=== PATIENT | female | born 1950 | race Caucasian/White ===

== ENCOUNTER 2017-03-25 17:32 | Inpatient (IN) | payer MEDICARE, MEDICAID ==
[~2017-03-25] VITALS: Ht 152.4 cm; Wt 63.5 kg
[~2017-03-25 17:32] MED LIST: HYDR-3240 PO; HYDR25TA6 PO; LISI2.5T PO; ROPI1TAB2 PO; TRAM50TA2 PO; ZOLP10TA PO
[2017-03-25] MEDS ORDERED: SODIUM CHLORIDE FLUSH 10ML SYR IVF ONE (18:00)
[2017-03-25] MEDS ORDERED: SODIUM CHLORIDE 0.9% 1,000ML IVBOLUS ONE ×2 (18:00→19:00)
[2017-03-25] MEDS ORDERED: LORazepam 2 MG/ML, 1ML ONE (18:24)
[2017-03-25] MEDS ORDERED: LORazepam 2 MG/ML, 1ML IVPush ONE (18:30)
[2017-03-25 18:36] LABS: ASPARTATE AMINO TRANSFERASE 21 U/L (15-37); BLOOD UREA NITROGEN 22 mg/dL (7-18)
[2017-03-25] MEDS ORDERED: ACETAMINOPHEN 650 MG SUPP ONE (18:46)
[2017-03-25 18:48] LABS: DIFF TOTAL CELLS COUNTED 100 CELL DIFF
[2017-03-25 18:50] LABS: VERIFY COUNTS? YES
[2017-03-25] MEDS ORDERED: ACETAMINOPHEN 650 MG SUPP PR ONE (19:00)
[2017-03-25] MEDS ORDERED: CEFTRIAXONE PMX 1GM/50ML 50 ML IVPB ONE (19:30)
[2017-03-25] MEDS ORDERED: CEFTRIAXONE PMX 1GM/50ML 50 ML ONE (19:33)
[2017-03-25] MEDS ORDERED: IBUPROFEN 200 MG TABLET PO ONE (20:00)
[2017-03-25] MEDS ORDERED: IBUPROFEN 200 MG TABLET ONE (20:13)
[2017-03-25] MEDS ORDERED: SODIUM CHLORIDE 0.9% 1,000 ML IV ONE (22:14)
[2017-03-25] MEDS ORDERED: ENOXAPARIN 40 MG/0.4 ML SQ SCH (23:30)
[2017-03-25] MEDS ORDERED: TRAZODONE 50MG TABLET PO PRN (23:30)
[2017-03-25] MEDS ORDERED: BISACODYL 10 MG SUPP PR PRN (23:30)
[2017-03-25] MEDS ORDERED: LABETALOL 5MG/ML, 20ML IV PRN (23:30)
[2017-03-25] MEDS ORDERED: DOCUSATE 100 MG CAPSULE PO PRN (23:30)
[2017-03-25] MEDS ORDERED: ACETAMINOPHEN 325 MG TABLET PO PRN (23:30)
[2017-03-25] MEDS ORDERED: POLYETHYLENE GLYCOL 17 GM PACKET PO PRN (23:30)
[2017-03-26 00:23] LABS: GLUCOSE, CSF 62 mg/dL (40-80)
[2017-03-26 01:02] VITALS: BP 102/67
[2017-03-26] MEDS: SODIUM CHLORIDE 0.9% 1,000 ML IV SCH ×4 (01:04→23:44)
[2017-03-26 01:17] VITALS: BP 102/67
[2017-03-26] MEDS ORDERED: CEFTRIAXONE PMX 2GM/50ML 50 ML IV SCH (01:30)
[2017-03-26] MEDS: NICOTINE 14MG/24 HR PATCH.TD24 TD SCH (01:47)
[2017-03-26 06:21] LABS: ASPARTATE AMINO TRANSFERASE 31 U/L (15-37); BLOOD UREA NITROGEN 18 mg/dL (7-18)
[2017-03-26 06:31] LABS: DIFF TOTAL CELLS COUNTED 100 CELL DIFF
[2017-03-26 06:49] LABS: VERIFY COUNTS? YES
[2017-03-26 07:48] VITALS: BP 106/70
[2017-03-26] MEDS ORDERED: VANCOMYCIN PER PHARMACY MC PRN (09:00)
[2017-03-26] MEDS: VANCOMYCIN PMX 1GM/200ML 200 ML IVPB SCH (09:30)
[2017-03-26] MEDS ORDERED: PHARMACOKINETIC MONITORING MC PRN (09:30)
[2017-03-26] MEDS ORDERED: PHARMACOKINETIC CONSULTATION MC ONE (09:30)
[2017-03-26] MEDS ORDERED: MAGNESIUM SULFATE PMX 4GM/100M 100 ML IV ONE (12:00)
[2017-03-26 14:10] VITALS: BP 110/72
[2017-03-26] MEDS ORDERED: LOPERAMIDE 2 MG CAPSULE PO PRN (14:30)
[2017-03-26 15:54] LABS: RAPID INFLUENZA A Negative (Negative); RAPID INFLUENZA B Negative (Negative)
[2017-03-26] MEDS: LACTOBACILLUS CHEW TABLET PO SCH ×2 (16:00→20:35)
[2017-03-26 20:00] VITALS: BP 106/66
[2017-03-26 21:03] LABS: DAU SCREEN DISCLAIMER
[2017-03-27 01:42] VITALS: BP 106/58
[2017-03-27] MEDS: NICOTINE 14MG/24 HR PATCH.TD24 TD SCH (01:49)
[2017-03-27 05:45] LABS: BLOOD UREA NITROGEN 15 mg/dL (7-18)
[2017-03-27 05:55] LABS: ASPARTATE AMINO TRANSFERASE 19 U/L (15-37)
[2017-03-27 06:04] LABS: DIFF TOTAL CELLS COUNTED 100 CELL DIFF
[2017-03-27 06:07] LABS: VERIFY COUNTS? YES
[2017-03-27] MEDS: SODIUM CHLORIDE 0.9% 1,000 ML IV SCH ×2 (06:35→18:15)
[2017-03-27] MEDS: LACTOBACILLUS CHEW TABLET PO SCH ×4 (06:38→20:45)
[2017-03-27 06:45] VITALS: BP 102/56
[2017-03-27] MEDS ORDERED: POTASSIUM PHOSPHATE 44 MEQ in SODIUM CHLORIDE 0.9% 500 ML IV ONE (07:00)
[2017-03-27] MEDS ORDERED: SODIUM PHOSPHATE 30 MMOL in SODIUM CHLORIDE 0.9% 500 ML IV ONE (07:30)
[2017-03-27 09:10] LABS: HIV 1&2 ANTIBODY SCREEN Nonreactive (Nonreactive); HIV-1 p24 ANTIGEN Nonreactive (Nonreactive)
[2017-03-27] MEDS: VANCOMYCIN PMX 1GM/200ML 200 ML IVPB SCH (10:31)
[2017-03-27] MEDS ORDERED: AMPICILLIN/SULBACTAM 3 GM in SODIUM CHLORIDE 0.9% 100 ML IV SCH (12:30)
[2017-03-27 13:30] VITALS: BP 88/60
[2017-03-27 13:56] VITALS: BP 108/57
[2017-03-27] MEDS: LORazepam 1MG TABLET PO PRN ×2 (15:55→21:29)
[2017-03-27] MEDS: AMPICILLIN/SULBACTAM 3 GM in SODIUM CHLORIDE 0.9% 100 ML IV SCH ×2 (15:55→20:45)
[2017-03-27] MEDS: POTASSIUM CHLORIDE 20 MEQ TAB.ER.PRT PO SCH (18:15)
[2017-03-27 18:58] VITALS: BP 125/76
[2017-03-28] MEDS: AMPICILLIN/SULBACTAM 3 GM in SODIUM CHLORIDE 0.9% 100 ML IV SCH ×3 (00:42→08:01)
[2017-03-28 01:21] VITALS: BP 108/55
[2017-03-28] MEDS: NICOTINE 14MG/24 HR PATCH.TD24 TD SCH (04:29)
[2017-03-28] MEDS: LACTOBACILLUS CHEW TABLET PO SCH ×2 (04:29→12:23)
[2017-03-28] MEDS: SODIUM CHLORIDE 0.9% 1,000 ML IV SCH (04:32)
[2017-03-28 06:36] LABS: BLOOD UREA NITROGEN 9 mg/dL (7-18)
[2017-03-28 06:39] LABS: ASPARTATE AMINO TRANSFERASE 7 U/L (15-37)
[2017-03-28 06:43] VITALS: BP 122/69
[2017-03-28 06:52] LABS: DIFF TOTAL CELLS COUNTED 100 CELL DIFF
[2017-03-28 06:53] LABS: VERIFY COUNTS? YES
[2017-03-28] MEDS: POTASSIUM CHLORIDE 20 MEQ TAB.ER.PRT PO SCH (08:01)
[2017-03-28] MEDS: LORazepam 1MG TABLET PO PRN (08:01)
[2017-03-28] MEDS ORDERED: POTASSIUM CHLORIDE 20 MEQ TAB.ER.PRT PO ONE (08:30)
[2017-03-28] MEDS ORDERED: VANCOMYCIN PMX 1GM/200ML 200 ML IVPB SCH (10:30)
[2017-03-28] MEDS ORDERED: AMPICILLIN/SULBACTAM 3 GM in SODIUM CHLORIDE 0.9% 100 ML IV SCH (14:00)
[2017-03-28 15:08] VITALS: BP 138/75
[2017-03-28] MEDS ORDERED: SODIUM CHLORIDE 0.9% 1,000 ML IV SCH (23:17)
[2017-04-02 04:06] LABS: ADENOVIRUS PCR Negative (Negative); INFLUENZA A PCR Negative (Negative); INFLUENZA B PCR Negative (Negative); METAPNEUMOVIRUS PCR Negative (Negative); PARAINFLUENZA 1 PCR Negative (Negative); PARAINFLUENZA 2 PCR Negative (Negative); PARAINFLUENZA 3 PCR Negative (Negative); RESP SYNCYTIAL VIRUS A PCR Negative (Negative); RESP SYNCYTIAL VIRUS B PCR Negative (Negative); RHINOVIRUS PCR Negative (Negative)
== END 2017-03-28 13:45 | disposition left against medical advice (07) | DRG 871 ==
LOC: ED 19:19 → EDIP 22:14 → 4WST 03-26 00:31
PROVIDERS: ADMIT Internal Medicine; ATTEND Internal Medicine
PROC: 0T9B70Z Drainage of Bladder with Drainage Device, Via Natural or Artificial Opening (ICD-10-PCS; principal; 2017-03-25)
PROC: 009U3ZX Drainage of Spinal Canal, Percutaneous Approach, Diagnostic (ICD-10-PCS; 2017-03-25)
PROC: B01B1ZZ Fluoroscopy of Spinal Cord using Low Osmolar Contrast (ICD-10-PCS; 2017-03-25)
DX: A41.9 Sepsis, unspecified organism (principal); G03.0 Nonpyogenic meningitis; G93.41 Metabolic encephalopathy; E43 Unspecified severe protein-calorie malnutrition; N17.9 Acute kidney failure, unspecified; E87.2 Acidosis; D64.9 Anemia, unspecified; E78.5 Hyperlipidemia, unspecified; E83.39 Other disorders of phosphorus metabolism; E83.42 Hypomagnesemia; E87.6 Hypokalemia; F17.200 Nicotine dependence, unspecified, uncomplicated; W18.30XA Fall on same level, unspecified, initial encounter; M54.30 Sciatica, unspecified side; M54.5 Low back pain; Z91.041 Radiographic dye allergy status; Y93.89 Activity, other specified; Y92.89 Other specified places as the place of occurrence of the external cause; Z82.3 Family history of stroke; I95.9 Hypotension, unspecified; R19.7 Diarrhea, unspecified
CPT/HCPCS: 36415; 62270; 70450; 71010; 80053; 80202; 80307; 81001; 82945; 83605; 83735; 84100; 84145; 84157; 84439; 84443; 85025; 85651; 86140; 86592; 86703; 87040; 87046; 87070; 87077; 87086; 87205; 87324; 87328; 87329; 87400; 87498; 87529; 87633; 87899; 89051; 89055; 96361; 96365; 96375; J0295; J0696; J1650; J3370; G0435; J2060; J3475; J7030; J7040

== ENCOUNTER 2017-12-01 11:58 | Emergency (ER) | payer MEDICARE, MEDICAID ==
[~2017-12-01] VITALS: Ht 175.3 cm; Wt 72.6 kg
[~2017-12-01 11:58] MED LIST changes: +HYDR-3237 PO; +LISI-167 PO; +ZOLP10TA5 PO
[2017-12-01] MEDS ORDERED: ONDANSETRON ODT 4 MG PO ONE (12:30)
[2017-12-01] MEDS ORDERED: PLEASE ENTER HEIGHT AND WEIGHT MC SCH (12:30)
[2017-12-01] MEDS ORDERED: OXYcodone/APAP 7.5/325MG TABLET PO ONE (12:30)
[2017-12-01] MEDS ORDERED: OXYcodone/APAP 7.5/325MG TABLET ONE ×2 (12:33→12:34)
[2017-12-01] MEDS ORDERED: ONDANSETRON ODT 4 MG ONE (12:34)
[2017-12-01 13:52] VITALS: BP 99/56
== END 2017-12-01 14:06 | disposition home or self-care (01) ==
LOC: ED 13:30
DX: M54.16 Radiculopathy, lumbar region (principal); S30.0XXA Contusion of lower back and pelvis, initial encounter; I10 Essential (primary) hypertension; M54.42 Lumbago with sciatica, left side; X58.XXXA Exposure to other specified factors, initial encounter; Y93.89 Activity, other specified; Y92.89 Other specified places as the place of occurrence of the external cause; Y99.8 Other external cause status
CPT/HCPCS: 72110; 99284; Q0162

== ENCOUNTER 2018-04-13 00:51 | Emergency (ER) | payer MEDICARE, MEDICAID ==
[~2018-04-13] VITALS: Ht 149.9 cm; Wt 49.0 kg
[~2018-04-13 00:51] MED LIST changes: +ACID1TAB7 PO; +LOPE2TAB26 PO
[2018-04-13] MEDS ORDERED: LORazepam 1MG TABLET PO ONE (01:30)
[2018-04-13 01:31] LABS: BASOPHILS # (AUTO) 0.08 x10^3/uL (0-0.1); BASOPHILS % (AUTO) 1 % (0-1); EOSINOPHILS # (AUTO) 0.71 x10^3/uL (0-0.4); EOSINOPHILS % (AUTO) 5 % (1-7); LYMPHOCYTES # (AUTO) 4.91 x10^3/uL (1-3.4); LYMPHOCYTES % (AUTO) 37 % (22-44); MD NO; MEAN CORPUSCULAR HEMOGLOBIN 31.8 pg (27.0-34.8); MEAN CORPUSCULAR HGB CONC 33.5 g/dL (32.4-35.8); MEAN PLATELET VOLUME 7.7 fL (7.4-10.4); MONOCYTES # (AUTO) 0.76 x10^3/uL (0.2-0.8); MONOCYTES % (AUTO) 6 % (2-9); NEUTROPHILS # (AUTO) 6.81 x10^3/uL (1.8-6.8); NEUTROPHILS % (AUTO) 51 % (42-75); PLATELET COUNT 286 x10^3/uL (130-400); RED BLOOD COUNT 3.86 x10^6/uL (3.82-5.3); RED CELL DISTRIBUTION WIDTH 14.1 % (9.6-15.2)
[2018-04-13 01:36] LABS: INTERNATIONAL NORMALIZED RATIO 0.94 (0.93-1.1); PROTHROMBIN TIME 9.8 Seconds (9.6-11.5)
[2018-04-13] MEDS ORDERED: LORazepam 1MG TABLET ONE (01:39)
[2018-04-13 01:43] LABS: ALANINE AMINOTRANSFERASE 21 U/L (12-78); ALBUMIN 3.5 g/dL (3.4-5.0); ANION GAP 7 mmol/L (5-15); CALCIUM 8.3 mg/dL (8.5-10.1); CHLORIDE 106 mmol/L (98-107); CREATININE 1.37 mg/dL (0.55-1.02)
[2018-04-13 01:45] LABS: ALKALINE PHOSPHATASE 95 U/L (45-117); BILIRUBIN,TOTAL 0.5 mg/dL (0.2-1.0); TOTAL PROTEIN 7.1 g/dL (6.4-8.2)
[2018-04-13] MEDS ORDERED: POTASSIUM CHLORIDE 20 MEQ TAB.ER.PRT PO ONE (02:30)
[2018-04-13] MEDS ORDERED: POTASSIUM CHLORIDE 20 MEQ TAB.ER.PRT ONE (02:33)
[2018-04-13] MEDS ORDERED: ONDANSETRON ODT 4 MG ONE (02:42)
[2018-04-13 02:48] VITALS: BP 106/52
[2018-04-13] MEDS ORDERED: ONDANSETRON ODT 4 MG PO ONE (03:00)
[2018-04-13] MEDS ORDERED: SODIUM CHLORIDE 0.9% 1,000ML IVBOLUS ONE (03:00)
[2018-04-13] MEDS ORDERED: ONDANSETRON 2MG/ML, 2ML IVPush ONE (03:00)
== END 2018-04-13 04:29 | disposition home or self-care (01) ==
LOC: ED 01:11
DX: R10.84 Generalized abdominal pain (principal); R11.2 Nausea with vomiting, unspecified; R19.7 Diarrhea, unspecified; I10 Essential (primary) hypertension; G89.29 Other chronic pain; M25.562 Pain in left knee; F17.210 Nicotine dependence, cigarettes, uncomplicated
CPT/HCPCS: 36415; 80053; 83690; 85025; 85610; 85730; 93005; 96360; 96361; 99285; J7030; Q0162

== ENCOUNTER 2018-04-23 19:01 | Emergency (ER) | payer MEDICARE, MEDICAID ==
[~2018-04-23] VITALS: Ht 149.9 cm; Wt 52.3 kg
[2018-04-23] MEDS ORDERED: SODIUM CHLORIDE 0.9% 1,000 ML IV ONE (19:25)
[2018-04-23] MEDS ORDERED: SODIUM CHLORIDE FLUSH 10ML SYR IVF ONE (19:30)
[2018-04-23 19:59] LABS: BASOPHILS % (AUTO) 1 % (0-1); EOSINOPHILS # (AUTO) 0.18 x10^3/uL (0-0.4); EOSINOPHILS % (AUTO) 2 % (1-7); LYMPHOCYTES % (AUTO) 29 % (22-44); MD NO; MEAN CORPUSCULAR HEMOGLOBIN 31.4 pg (27.0-34.8); MEAN CORPUSCULAR HGB CONC 33.4 g/dL (32.4-35.8); MEAN CORPUSCULAR VOLUME 94.3 fL (80-100); MEAN PLATELET VOLUME 7.7 fL (7.4-10.4); MONOCYTES % (AUTO) 5 % (2-9); NEUTROPHILS # (AUTO) 6.73 x10^3/uL (1.8-6.8); NEUTROPHILS % (AUTO) 64 % (42-75); PLATELET COUNT 351 x10^3/uL (130-400); RED BLOOD COUNT 3.85 x10^6/uL (3.82-5.3); RED CELL DISTRIBUTION WIDTH 13.4 % (9.6-15.2)
[2018-04-23 20:09] LABS: ALANINE AMINOTRANSFERASE 18 U/L (12-78); ALBUMIN 3.8 g/dL (3.4-5.0); ANION GAP 10 mmol/L (5-15); CALCIUM 9.4 mg/dL (8.5-10.1); CHLORIDE 102 mmol/L (98-107); CREATININE 0.95 mg/dL (0.55-1.02)
[2018-04-23 20:10] LABS: ALKALINE PHOSPHATASE 89 U/L (45-117); BILIRUBIN,TOTAL 0.5 mg/dL (0.2-1.0); TOTAL PROTEIN 8.1 g/dL (6.4-8.2)
[2018-04-23] MEDS ORDERED: KETOROLAC 30 MG/1 ML ONE (20:16)
[2018-04-23] MEDS ORDERED: KETOROLAC 30 MG/1 ML IVPush ONE (20:30)
[2018-04-23 20:49] LABS: MICROSCOPIC NOT IND
[2018-04-23 20:50] LABS: CULTURE INDICATED? NO
[2018-04-23 21:24] VITALS: BP 134/76
== END 2018-04-23 21:38 | disposition home or self-care (01) ==
LOC: ED 20:06
DX: F11.23 Opioid dependence with withdrawal (principal); G89.29 Other chronic pain; I10 Essential (primary) hypertension; F17.210 Nicotine dependence, cigarettes, uncomplicated
CPT/HCPCS: 36415; 80053; 81003; 85025; 96374; 99284; J1885

== ENCOUNTER 2018-07-25 16:22 | Inpatient (IN) | payer MEDICARE, MEDICAID ==
[~2018-07-25] VITALS: Ht 149.9 cm; Wt 56.0 kg
[2018-07-25] MEDS ORDERED: SODIUM CHLORIDE FLUSH 10ML SYR IVF ONE (17:00)
[2018-07-25] MEDS ORDERED: SODIUM CHLORIDE 0.9% 1,000ML IVBOLUS ONE ×2 (17:00→20:00)
[2018-07-25 17:38] LABS: MEAN CORPUSCULAR HEMOGLOBIN 31.8 pg (27.0-34.8); MEAN CORPUSCULAR HGB CONC 33.1 g/dL (32.4-35.8); MEAN CORPUSCULAR VOLUME 96.2 fL (80-100); MEAN PLATELET VOLUME 7.5 fL (7.4-10.4); PLATELET COUNT 243 x10^3/uL (130-400); RED BLOOD COUNT 2.88 x10^6/uL (3.82-5.3); RED CELL DISTRIBUTION WIDTH 16.5 % (9.6-15.2)
[2018-07-25 17:40] LABS: ALANINE AMINOTRANSFERASE 20 U/L (12-78); ALBUMIN 3.2 g/dL (3.4-5.0); ANION GAP 7 mmol/L (5-15); CHLORIDE 119 mmol/L (98-107); CREATININE 1.56 mg/dL (0.55-1.02)
[2018-07-25 17:45] LABS: ALKALINE PHOSPHATASE 68 U/L (45-117); BILIRUBIN,TOTAL 0.3 mg/dL (0.2-1.0); TROPONIN I < 0.015 ng/mL (0.000-0.045)
[2018-07-25 18:07] LABS: BASOPHILS # (AUTO) 0.03 x10^3/uL (0-0.1); BASOPHILS % (AUTO) 0 % (0-1); EOSINOPHILS % (AUTO) 0 % (1-7); LYMPHOCYTES # (AUTO) 1.65 x10^3/uL (1-3.4); LYMPHOCYTES % (AUTO) 9 % (22-44); MD SCAN; MONOCYTES # (AUTO) 1.08 x10^3/uL (0.2-0.8); MONOCYTES % (AUTO) 6 % (2-9); NEUTROPHILS # (AUTO) 16.54 x10^3/uL (1.8-6.8); NEUTROPHILS % (AUTO) 86 % (42-75)
[2018-07-25] MEDS ORDERED: OMNIPAQUE 350 MG/ML, 100ML BOTTLE ONE (19:00)
[2018-07-25] MEDS ORDERED: SODIUM CHLORIDE 0.9% 1,000 ML IV SCH (19:56)
[2018-07-25] MEDS ORDERED: SENNA/DOCUSATE TABLET PO PRN (20:00)
[2018-07-25] MEDS ORDERED: AZITHROMYCIN 500 MG in SODIUM CHLORIDE 0.9% 250 ML IV ONE (20:00)
[2018-07-25] MEDS ORDERED: CEFTRIAXONE PMX 1GM/50ML 50 ML IV ONE (20:00)
[2018-07-25] MEDS ORDERED: PHARMACY MAY ADJ FOR RENAL FX MC PRN (20:00)
[2018-07-25] MEDS ORDERED: ACETAMINOPHEN 650 MG SUPP PR PRN (20:00)
[2018-07-25 21:16] VITALS: BP 118/67
[2018-07-25] MEDS: SODIUM CHLORIDE 0.9% 1,000 ML IV SCH (21:49)
[2018-07-25] MEDS: CEFTRIAXONE 1,000 MG in SODIUM CHLORIDE 0.9% 50 ML IVPB SCH (22:26)
[2018-07-25] MEDS: METRONIDAZOLE PMX 500MG/100ML 100 ML IV SCH (23:00)
[2018-07-26] MEDS: HEPARIN 5,000 UNITS/ML, 1ML INJ SCH ×3 (00:20→16:20)
[2018-07-26] MEDS: AZITHROMYCIN 500 MG in SODIUM CHLORIDE 0.9% 250 ML IV SCH ×2 (00:20→21:26)
[2018-07-26 00:25] VITALS: BP 150/79
[2018-07-26 01:18] LABS: AMPHETAMINE SCREEN, URINE Negative (Negative); BARBITURATE SCREEN, URINE Negative (Negative); BENZODIAZEPINE SCREEN, URINE Positive (Negative); CANNABINOID SCREEN, URINE Negative (Negative); COCAINE SCREEN, URINE Negative (Negative); METHADONE SCREEN, URINE Negative (Negative); OPIATE SCREEN, URINE Negative (Negative)
[2018-07-26 01:20] LABS: CULTURE INDICATED? YES; MICROSCOPIC INDICATED
[2018-07-26 05:19] LABS: BASOPHILS # (AUTO) 0.04 x10^3/uL (0-0.1); BASOPHILS % (AUTO) 0 % (0-1); EOSINOPHILS # (AUTO) 0.23 x10^3/uL (0-0.4); EOSINOPHILS % (AUTO) 1 % (1-7); LYMPHOCYTES # (AUTO) 2.36 x10^3/uL (1-3.4); LYMPHOCYTES % (AUTO) 14 % (22-44); MD NO; MEAN CORPUSCULAR HEMOGLOBIN 31.8 pg (27.0-34.8); MEAN CORPUSCULAR HGB CONC 32.8 g/dL (32.4-35.8); MEAN CORPUSCULAR VOLUME 96.9 fL (80-100); MEAN PLATELET VOLUME 7.7 fL (7.4-10.4); MONOCYTES # (AUTO) 0.98 x10^3/uL (0.2-0.8); MONOCYTES % (AUTO) 6 % (2-9); NEUTROPHILS # (AUTO) 13.18 x10^3/uL (1.8-6.8); NEUTROPHILS % (AUTO) 79 % (42-75); PLATELET COUNT 236 x10^3/uL (130-400); RED CELL DISTRIBUTION WIDTH 16.7 % (9.6-15.2)
[2018-07-26 05:21] LABS: ANION GAP 7 mmol/L (5-15); CALCIUM 8.2 mg/dL (8.5-10.1); CHLORIDE 117 mmol/L (98-107); CREATININE 1.02 mg/dL (0.55-1.02)
[2018-07-26 07:22] VITALS: BP_SYST 115; BP_SYST 89; BP_SYST 95; BP_DIAS 55; BP_DIAS 72
[2018-07-26 07:30] VITALS: BP 115/72
[2018-07-26] MEDS: METRONIDAZOLE PMX 500MG/100ML 100 ML IV SCH ×3 (07:49→23:16)
[2018-07-26] MEDS ORDERED: GABA300C10 PO (10:20)
[2018-07-26] MEDS ORDERED: HYDR25TA6 PO (10:20)
[2018-07-26] MEDS: SODIUM CHLORIDE 0.9% 1,000 ML IV SCH ×2 (11:31→23:17)
[2018-07-26] MEDS: NICOTINE 14MG/24 HR PATCH.TD24 TD SCH (12:20)
[2018-07-26 12:42] VITALS: BP 136/78
[2018-07-26 14:06] VITALS: BP 126/69
[2018-07-26] MEDS: HYDROcodone/APAP 5/325 TABLET PO PRN (14:31)
[2018-07-26] MEDS: GABAPENTIN 300 MG CAPSULE PO SCH ×2 (16:19→20:46)
[2018-07-26 19:26] VITALS: BP 115/66
[2018-07-26] MEDS: CEFTRIAXONE 1,000 MG in SODIUM CHLORIDE 0.9% 50 ML IVPB SCH (20:45)
[2018-07-26] MEDS ORDERED: ZOLPIDEM 10MG TABLET PO SCH (21:00)
[2018-07-27 00:14] VITALS: BP 112/58
[2018-07-27] MEDS: HYDROcodone/APAP 5/325 TABLET PO PRN ×2 (00:19→07:58)
[2018-07-27] MEDS: HEPARIN 5,000 UNITS/ML, 1ML INJ SCH ×2 (00:19→07:59)
[2018-07-27 06:14] LABS: BASOPHILS # (AUTO) 0.05 x10^3/uL (0-0.1); BASOPHILS % (AUTO) 1 % (0-1); EOSINOPHILS # (AUTO) 0.17 x10^3/uL (0-0.4); EOSINOPHILS % (AUTO) 2 % (1-7); LYMPHOCYTES # (AUTO) 3.16 x10^3/uL (1-3.4); LYMPHOCYTES % (AUTO) 35 % (22-44); MD NO; MEAN CORPUSCULAR HEMOGLOBIN 32.4 pg (27.0-34.8); MEAN CORPUSCULAR HGB CONC 33.7 g/dL (32.4-35.8); MEAN CORPUSCULAR VOLUME 96.1 fL (80-100); MEAN PLATELET VOLUME 7.6 fL (7.4-10.4); MONOCYTES # (AUTO) 0.63 x10^3/uL (0.2-0.8); MONOCYTES % (AUTO) 7 % (2-9); NEUTROPHILS # (AUTO) 5.02 x10^3/uL (1.8-6.8); NEUTROPHILS % (AUTO) 56 % (42-75); PLATELET COUNT 246 x10^3/uL (130-400); RED BLOOD COUNT 2.86 x10^6/uL (3.82-5.3); RED CELL DISTRIBUTION WIDTH 16.1 % (9.6-15.2)
[2018-07-27 06:17] LABS: ALANINE AMINOTRANSFERASE 25 U/L (12-78); ALBUMIN 2.9 g/dL (3.4-5.0); ANION GAP 9 mmol/L (5-15); CALCIUM 7.7 mg/dL (8.5-10.1); CHLORIDE 120 mmol/L (98-107); CREATININE 0.73 mg/dL (0.55-1.02)
[2018-07-27 06:19] LABS: ALKALINE PHOSPHATASE 61 U/L (45-117); BILIRUBIN,TOTAL 0.2 mg/dL (0.2-1.0); TOTAL PROTEIN 5.7 g/dL (6.4-8.2)
[2018-07-27 06:40] VITALS: BP 130/75
[2018-07-27] MEDS: METRONIDAZOLE PMX 500MG/100ML 100 ML IV SCH (07:55)
[2018-07-27] MEDS: GABAPENTIN 300 MG CAPSULE PO SCH (07:58)
[2018-07-27] MEDS: NICOTINE 14MG/24 HR PATCH.TD24 TD SCH (08:02)
[2018-07-27] MEDS: SODIUM CHLORIDE 0.9% 1,000 ML IV SCH (09:00)
[2018-07-27] MEDS ORDERED: LEVO750T26 PO (11:07)
== END 2018-07-27 12:20 | disposition home or self-care (01) | DRG 871 ==
LOC: ED 19:25 → EDIP 19:54 → 5SO 21:07 → 3NE 07-26 14:01
PROVIDERS: ADMIT Family Medicine; ATTEND Family Medicine
DX: A41.9 Sepsis, unspecified organism (principal); J96.01 Acute respiratory failure with hypoxia; J69.0 Pneumonitis due to inhalation of food and vomit; G93.40 Encephalopathy, unspecified; N17.9 Acute kidney failure, unspecified; R65.20 Severe sepsis without septic shock; Z88.3 Allergy status to other anti-infective agents; F17.200 Nicotine dependence, unspecified, uncomplicated; I10 Essential (primary) hypertension; Y92.89 Other specified places as the place of occurrence of the external cause
CPT/HCPCS: 36415; 70450; 71045; 71275; 80048; 80053; 80307; 81001; 82140; 83735; 84100; 84484; 85025; 85379; 87040; 87086; 93005; 96374; 99291; G0378; J0456; J0696; J1644; Q9967; 92523-GN; J7030; J7050

== ENCOUNTER 2018-10-15 11:14 | Observation (INO) | payer MEDICARE, MEDICAID ==
[~2018-10-15] VITALS: Ht 149.9 cm; Wt 52.0 kg
[~2018-10-15 11:14] MED LIST changes: +GABA300C10 PO; +LEVO750T26 PO
[2018-10-15] MEDS ORDERED: SODIUM CHLORIDE 0.9% 1,000 ML IV ONE ×2 (11:27→14:23)
[2018-10-15] MEDS ORDERED: ONDANSETRON 2MG/ML, 2ML IVPush ONE (11:30)
[2018-10-15] MEDS ORDERED: SODIUM CHLORIDE FLUSH 10ML SYR IVF ONE (11:30)
[2018-10-15] MEDS ORDERED: SODIUM CHLORIDE 0.9% 1,000ML IVBOLUS ONE (11:30)
[2018-10-15 11:51] LABS: BASOPHILS # (AUTO) 0.05 x10^3/uL (0-0.1); BASOPHILS % (AUTO) 1 % (0-1); EOSINOPHILS # (AUTO) 0.11 x10^3/uL (0-0.4); EOSINOPHILS % (AUTO) 1 % (1-7); LYMPHOCYTES # (AUTO) 2.93 x10^3/uL (1-3.4); LYMPHOCYTES % (AUTO) 33 % (22-44); MD NO; MEAN CORPUSCULAR HEMOGLOBIN 32.4 pg (27.0-34.8); MEAN CORPUSCULAR HGB CONC 33.8 g/dL (32.4-35.8); MEAN PLATELET VOLUME 7.9 fL (7.4-10.4); MONOCYTES # (AUTO) 0.45 x10^3/uL (0.2-0.8); MONOCYTES % (AUTO) 5 % (2-9); NEUTROPHILS # (AUTO) 5.31 x10^3/uL (1.8-6.8); NEUTROPHILS % (AUTO) 60 % (42-75); PLATELET COUNT 261 x10^3/uL (130-400); RED BLOOD COUNT 3.74 x10^6/uL (3.82-5.3)
[2018-10-15 12:27] LABS: ANION GAP 6 mmol/L (5-15); CALCIUM 9.5 mg/dL (8.5-10.1); CHLORIDE 110 mmol/L (98-107)
[2018-10-15 12:28] LABS: ALANINE AMINOTRANSFERASE 180 U/L (12-78); ALBUMIN 3.8 g/dL (3.4-5.0); ALKALINE PHOSPHATASE 77 U/L (45-117); BILIRUBIN,TOTAL 0.4 mg/dL (0.2-1.0); CREATININE 1.04 mg/dL (0.55-1.02); TOTAL PROTEIN 6.9 g/dL (6.4-8.2)
[2018-10-15 13:18] LABS: MICROSCOPIC AUTO
[2018-10-15 13:19] LABS: CULTURE INDICATED? YES
[2018-10-15] MEDS ORDERED: SODIUM CHLORIDE FLUSH 10ML SYR IVF PRN (14:30)
[2018-10-15] MEDS ORDERED: MORPHINE SULFATE 4 MG/ML, 1ML IVPush PRN (14:30)
[2018-10-15] MEDS ORDERED: ONDANSETRON 2MG/ML, 2ML IVPush PRN (14:30)
[2018-10-15 15:22] VITALS: BP 137/83
[2018-10-15 19:27] VITALS: BP 163/81
[2018-10-15] MEDS ORDERED: ZOLPIDEM 10MG TABLET PO PRN (20:30)
[2018-10-15] MEDS ORDERED: ONDANSETRON 2MG/ML, 2ML IV PRN (20:30)
[2018-10-15] MEDS ORDERED: NICOTINE 14MG/24 HR PATCH.TD24 TD SCH (20:30)
[2018-10-15] MEDS: LACTATED RINGERS 1,000 ML IV SCH (20:30)
[2018-10-15] MEDS: GABAPENTIN 300 MG CAPSULE PO SCH (20:40)
[2018-10-16 02:09] VITALS: BP 124/75
[2018-10-16] MEDS: LACTATED RINGERS 1,000 ML IV SCH (02:16)
[2018-10-16] MEDS: GABAPENTIN 300 MG CAPSULE PO SCH (07:48)
[2018-10-16 08:07] VITALS: BP 135/79
[2018-10-16] MEDS ORDERED: LISINOPRIL 10 MG TABLET PO SCH (09:00)
[2018-10-16 12:17] VITALS: BP 136/76
== END 2018-10-16 12:55 | disposition home or self-care (01) ==
LOC: ED 11:19 → EDIP 14:23 → INTOOBSV 14:23 → 4NOR 15:04 → DCLOUNGE 10-16 12:31
PROVIDERS: ADMIT Surgery; ATTEND Surgery
DX: K52.9 Noninfective gastroenteritis and colitis, unspecified (principal); K80.00 Calculus of gallbladder with acute cholecystitis without obstruction; I10 Essential (primary) hypertension; F17.210 Nicotine dependence, cigarettes, uncomplicated; Z85.828 Personal history of other malignant neoplasm of skin; Z82.49 Family history of ischemic heart disease and other diseases of the circulatory system; Z82.5 Family history of asthma and other chronic lower respiratory diseases; Z79.899 Other long term (current) drug therapy
CPT/HCPCS: 36415; 76700; 80053; 81001; 83690; 85025; 87086; 93005; 96361; 96374; 99285; G0378; J7030; J7120; 96360

== ENCOUNTER 2019-03-05 21:46 | Observation (INO) | payer MEDICARE, MEDICAID ==
[~2019-03-05] VITALS: Ht 149.9 cm; Wt 51.5 kg
--- NOTE | 2019-03-05 21:46 | NUR ---
BIB EMS for upper abdominal pain, vomiting, and constipation. Pt reports pain and nausea are worse after she eats. Pt had a spinal stimulator placed 2 weeks ago and was given hydrocodone, states that she has not been having regular BMs since. Pt denies having taken stool softeners/laxatives/enema and states that her last BM was 2 days ago and does not describe it as normal.
--- NOTE | 2019-03-05 21:54 | NUR ---
Zunilda TRAN, at bedside to evaluate pt.
--- NOTE | 2019-03-05 22:15 | NUR ---
PIV STARTED, LABS DRAWN AND LABS SENT WITH [facility].
[2019-03-05] MEDS ORDERED: MORPHINE SULFATE 4 MG/ML, 1ML ONE (22:16)
[2019-03-05] MEDS ORDERED: ONDANSETRON 2MG/ML, 2ML ONE (22:16)
--- NOTE | 2019-03-05 22:21 | NUR ---
Pt medicated per JAN. EDT at bedside for EKG.
[2019-03-05] MEDS ORDERED: MORPHINE SULFATE 4 MG/ML, 1ML IVPush ONE (22:30)
[2019-03-05] MEDS ORDERED: ONDANSETRON 2MG/ML, 2ML IVPush ONE (22:30)
[2019-03-05 22:33] LABS: ALANINE AMINOTRANSFERASE 37 U/L (12-78); ALBUMIN 3.9 g/dL (3.4-5.0); ANION GAP 8 mmol/L (5-15); CALCIUM 9.3 mg/dL (8.5-10.1); CHLORIDE 110 mmol/L (98-107); CREATININE 1.21 mg/dL (0.55-1.02)
[2019-03-05 22:34] LABS: BASOPHILS # (AUTO) 0.04 x10^3/uL (0-0.1); BASOPHILS % (AUTO) 1 % (0-1); EOSINOPHILS # (AUTO) 0.08 x10^3/uL (0-0.4); EOSINOPHILS % (AUTO) 1 % (1-7); LYMPHOCYTES # (AUTO) 2.77 x10^3/uL (1-3.4); LYMPHOCYTES % (AUTO) 33 % (22-44); MD NO; MEAN CORPUSCULAR HEMOGLOBIN 31.9 pg (27.0-34.8); MEAN CORPUSCULAR HGB CONC 33.1 g/dL (32.4-35.8); MEAN CORPUSCULAR VOLUME 96.3 fL (80-100); MEAN PLATELET VOLUME 7.7 fL (7.4-10.4); MONOCYTES # (AUTO) 0.44 x10^3/uL (0.2-0.8); MONOCYTES % (AUTO) 5 % (2-9); NEUTROPHILS # (AUTO) 5.18 x10^3/uL (1.8-6.8); NEUTROPHILS % (AUTO) 61 % (42-75); PLATELET COUNT 299 x10^3/uL (130-400); RED BLOOD COUNT 4.09 x10^6/uL (3.82-5.3); RED CELL DISTRIBUTION WIDTH 14.3 % (9.6-15.2)
--- NOTE | 2019-03-05 22:36 | NUR ---
US at bedside.
[2019-03-05 22:37] LABS: ALKALINE PHOSPHATASE 121 U/L (45-117); BILIRUBIN,TOTAL 0.2 mg/dL (0.2-1.0); TOTAL PROTEIN 7.3 g/dL (6.4-8.2); TROPONIN I < 0.015 ng/mL (0.000-0.045)
--- NOTE | 2019-03-05 23:27 | NUR ---
Pt sleeping on gurney, pain seems to be controlled. VSS.
--- NOTE | 2019-03-05 23:34 | NUR ---
Dr. Brooks at bedside to discuss ED findings and POC.
--- NOTE | 2019-03-05 23:43 | NUR ---
Pt reports she is still unable to give a urine sample, pt requested to have water. Pt advised that she is NPO currently.
[2019-03-06] MEDS ORDERED: D5%-0.45NACL+KCL 20MEQ 1,000 ML IV SCH (00:01)
--- NOTE | 2019-03-06 00:03 | NUR ---
This RN attempted to call pt's with the phone number pt provided, , no answer and no option to leave voicemail.
[2019-03-06] MEDS ORDERED: BUPIVACAINE/PF-EPI 0.5% 1:200K ONE (00:29)
[2019-03-06] MEDS ORDERED: ONDANSETRON 2MG/ML, 2ML IVPush PRN (00:30)
[2019-03-06] MEDS ORDERED: LABETALOL 5MG/ML, 20ML IVPush PRN (00:30)
[2019-03-06] MEDS ORDERED: PROMETHAZINE 25 MG/ML, 1ML IM PRN (00:30)
[2019-03-06] MEDS ORDERED: ENALAPRILAT 1.25 MG/ML, 2ML IVPush PRN (00:30)
[2019-03-06] MEDS ORDERED: MORPHINE SULFATE 4 MG/ML, 1ML ONE (00:43)
[2019-03-06] MEDS: morphine SULFATE 10 MG/ML, 1ML IVPush PRN ×2 (00:47→09:14)
--- NOTE | 2019-03-06 00:47 | NUR ---
Pt medicated per MAR.
--- NOTE | 2019-03-06 00:56 | NUR ---
Telephone SBAR report called to Shavon LOUISE. Pt made aware of new room assignment.
[2019-03-06 01:19] VITALS: BP 114/78
[2019-03-06 01:26] VITALS: BP 114/78
[2019-03-06] MEDS ORDERED: ZOLPIDEM 10MG TABLET ONE (01:48)
[2019-03-06] MEDS ORDERED: BUPIVACAINE/PF-EPI 0.5% 1:200K INFIL ONE (04:42)
[2019-03-06] MEDS ORDERED: FENTANYL PF 250 MCG/5ML ONE (05:43)
[2019-03-06] MEDS ORDERED: CEFOTETAN 2 GM ONE (05:50)
[2019-03-06] MEDS ORDERED: PROMETHAZINE 25 MG/ML, 1ML IV PRN (06:00)
[2019-03-06] MEDS ORDERED: ACETAMINOPHEN 325 MG TABLET PO PRN (06:00)
[2019-03-06] MEDS ORDERED: hydrALAzine 20 MG/ML, 1ML IV PRN (06:00)
[2019-03-06] MEDS ORDERED: HYDROmorphone 2 MG/ML, 1ML IVPush PRN (06:00)
[2019-03-06] MEDS ORDERED: OXYcodone 5 MG/5 ML ORAL.SOL UDC PO PRN (06:00)
[2019-03-06] MEDS ORDERED: LABETALOL 5MG/ML, 20ML IV PRN (06:00)
[2019-03-06] MEDS ORDERED: ONDANSETRON 2MG/ML, 2ML IV PRN (06:00)
[2019-03-06] MEDS ORDERED: DEXAMETHASONE 4 MG/ML, 1ML ONE ×2 (06:01→06:27)
[2019-03-06] MEDS ORDERED: METOPROLOL 1 MG/ML, 5ML ONE (06:26)
[2019-03-06] MEDS ORDERED: PROPOFOL 10 MG/ML, 20ML ONE (06:27)
[2019-03-06] MEDS ORDERED: SUCCINYLCHOLINE 20 MG/ML, 10ML ONE (06:27)
[2019-03-06] MEDS ORDERED: ONDANSETRON 2MG/ML, 2ML ONE (06:27)
[2019-03-06] MEDS ORDERED: PHENYLEPHRINE 10 MG/ML ONE (06:28)
[2019-03-06] MEDS ORDERED: ROCURONIUM 10MG/ML,5ML ONE (06:28)
[2019-03-06 06:30] LABS: MICROSCOPIC AUTO
[2019-03-06 06:31] LABS: CULTURE INDICATED? YES
[2019-03-06] MEDS ORDERED: morphine SULFATE 10 MG/ML, 1ML IVPush PRN (07:00)
[2019-03-06] MEDS ORDERED: ACETAMINOPHEN 650 MG/20.3 ML UDC ONE (07:13)
[2019-03-06] MEDS ORDERED: OXYcodone 5 MG/5 ML ORAL.SOL UDC ONE (07:13)
[2019-03-06] MEDS ORDERED: FENTANYL PF 100 MCG/2ML ONE (07:13)
[2019-03-06] MEDS: FENTANYL PF 100 MCG/2ML IV PRN ×2 (07:15→07:33)
[2019-03-06 08:52] VITALS: BP 117/57
[2019-03-06] MEDS ORDERED: LISINOPRIL 10 MG TABLET PO SCH (09:00)
[2019-03-06] MEDS ORDERED: GABAPENTIN 300 MG CAPSULE PO SCH (09:00)
[2019-03-06] MEDS ORDERED: ONDA4TAB7 PO (11:07)
[2019-03-06] MEDS ORDERED: OXYC-306 PO (11:07)
[2019-03-06] MEDS ORDERED: ZOLPIDEM 10MG TABLET PO SCH (21:00)
== END 2019-03-06 13:03 | disposition home or self-care (01) ==
LOC: ED 22:33 → INTOOBSV 03-06 00:07 → EDIP 03-06 00:07 → 4NOR 03-06 01:10 → DCLOUNGE 03-06 12:48
PROVIDERS: ADMIT Family Medicine; ATTEND Surgery
DX: K80.00 Calculus of gallbladder with acute cholecystitis without obstruction (principal); G89.29 Other chronic pain; I10 Essential (primary) hypertension; F17.210 Nicotine dependence, cigarettes, uncomplicated; K82.8 Other specified diseases of gallbladder; N28.1 Cyst of kidney, acquired; R11.2 Nausea with vomiting, unspecified; R55 Syncope and collapse
CPT/HCPCS: 36415; 47562; 74022; 76700; 80053; 81001; 83690; 84484; 85025; 87086; 88304; 88305; 93005; 96361; 96374; 96375; 96376; 99284; G0378; J0330; J1100; J2270; J2370; J2405; J2704; J3010; J3480; J3490

== ENCOUNTER 2019-04-27 22:19 | Emergency (ER) | payer MEDICARE, MEDICAID ==
[~2019-04-27] VITALS: Ht 160 cm; Wt 55.4 kg
[~2019-04-27 22:19] MED LIST changes: +ONDA4TAB7 PO; +OXYC-306 PO
[2019-04-27 22:26] VITALS: BP 124/65
[2019-04-27 22:54] LABS: BASOPHILS # (AUTO) 0.06 x10^3/uL (0-0.1); BASOPHILS % (AUTO) 1 % (0-1); EOSINOPHILS # (AUTO) 0.25 x10^3/uL (0-0.4); EOSINOPHILS % (AUTO) 3 % (1-7); LYMPHOCYTES # (AUTO) 3.18 x10^3/uL (1-3.4); LYMPHOCYTES % (AUTO) 36 % (22-44); MD NO; MEAN CORPUSCULAR HEMOGLOBIN 30.5 pg (27.0-34.8); MEAN CORPUSCULAR HGB CONC 32.1 g/dL (32.4-35.8); MEAN PLATELET VOLUME 7.4 fL (7.4-10.4); MONOCYTES # (AUTO) 0.57 x10^3/uL (0.2-0.8); MONOCYTES % (AUTO) 7 % (2-9); NEUTROPHILS # (AUTO) 4.66 x10^3/uL (1.8-6.8); NEUTROPHILS % (AUTO) 54 % (42-75); PLATELET COUNT 428 x10^3/uL (130-400); RED BLOOD COUNT 4.34 x10^6/uL (3.82-5.3); RED CELL DISTRIBUTION WIDTH 15.1 % (9.6-15.2)
[2019-04-27 23:03] LABS: ALANINE AMINOTRANSFERASE 23 U/L (12-78); ALBUMIN 4.1 g/dL (3.4-5.0); ANION GAP 12 mmol/L (5-15); CALCIUM 9.5 mg/dL (8.5-10.1); CHLORIDE 116 mmol/L (98-107); SALICYLATE LEVEL 3.1 mg/dL (2.8-20.0)
[2019-04-27 23:08] LABS: ALKALINE PHOSPHATASE 104 U/L (45-117); BILIRUBIN,TOTAL 0.1 mg/dL (0.2-1.0); CREATININE 1.63 mg/dL (0.55-1.02); TROPONIN I < 0.015 ng/mL (0.000-0.045)
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
[2019-04-27 23:21] LABS: ACETAMINOPHEN < 2 mcg/mL (10-30)
[2019-04-28 00:32] LABS: MICROSCOPIC NOT IND
--- NOTE | 2019-04-28 00:32 | NUR ---
URINE SENT TO LAB. PT RESTING CALMLY IN BED AT THIS TIME. WILL CONTINUE TO MONITOR.
[2019-04-28 00:35] LABS: CULTURE INDICATED? NO
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
--- NOTE | 2019-04-28 01:20 | NUR ---
PT AGAIN STATED SHE WILL BE SAFE AT HOME. PT STATED SHE HAS [place] NEIGHBORS AND FRIENDS SHE CAN CALL IF SHE NEEDS HELP. PT STATED SHE DOES NOT WANT TO STAY. PT IS A&oX4 AT THIS TIME. PT AMBULATING STEADILY IN HALLS. PT ABLE TO DRESS HERSELF, WILL FIND PANTS AND SOCKS FOR PT. IV REMOVED. PT AWARE [facility] HAS BEEN CALLED AND MAY COME TO VISIT WITH HER. PT STATED THAT'S OK.
== END 2019-04-28 01:52 | disposition home or self-care (01) ==
LOC: ED 23:41
DX: R41.82 Altered mental status, unspecified (principal); I10 Essential (primary) hypertension; F17.200 Nicotine dependence, unspecified, uncomplicated
CPT/HCPCS: 36415; 70450; 80053; 80307; 81003; 82140; 84484; 85025; 93005; 99284

== ENCOUNTER 2019-05-22 02:13 | Emergency (ER) | payer MEDICARE, MEDICAID ==
[~2019-05-22] VITALS: Ht 149.9 cm; Wt 51.0 kg
[2019-05-22 02:46] LABS: CULTURE INDICATED? YES; MICROSCOPIC INDICATED
--- NOTE | 2019-05-22 03:00 | NUR ---
PT HERE FOR PAINFUL URINATION X 3 DAYS. VSS. UA SENT TO LAB. WAITING FOR RESULTS. CALL LIGHT IN REACH
[2019-05-22] MEDS ORDERED: PHENAZOPYRIDINE 200 MG TABLET PO ONE (03:30)
[2019-05-22] MEDS ORDERED: CEFTRIAXONE 1,000 MG IM ONE (03:30)
[2019-05-22] MEDS ORDERED: PHENAZOPYRIDINE 200 MG TABLET ONE (03:36)
[2019-05-22] MEDS ORDERED: CEFTRIAXONE 1,000 MG ONE (03:36)
[2019-05-22 03:48] VITALS: BP 142/76
--- NOTE | 2019-05-22 03:57 | NUR ---
Patient given discharge instructions and they have confirmed that they understand the instructions. Patient ambulatory with steady gait.
== END 2019-05-22 03:59 | disposition home or self-care (01) ==
LOC: ED 03:24
DX: N30.00 Acute cystitis without hematuria (principal); F17.200 Nicotine dependence, unspecified, uncomplicated; I10 Essential (primary) hypertension
CPT/HCPCS: 81001; 87077; 87086; 96372; 99283; J0696; 87186

== ENCOUNTER 2019-06-06 00:43 | Emergency (ER) | payer MEDICARE, MEDICAID ==
[~2019-06-06] VITALS: Ht 149.9 cm; Wt 51.0 kg
--- NOTE | 2019-06-06 00:45 | NUR ---
PT ARRIVED VIA EMS FOR SYNCOPE/GLF THIS EVENING AT HOME. PT ARRIVES TO [facility] CALM AND WITH NO DISTRESS. PT DENIES ANY PAIN. PT REPORTS HAVING "MULTIPLE FALLS LATELY", AND REPORTS THAT SHE DOES NOT KNOW WHETHER OR NOT SHE LOSES CONSCIOUSNESS. UPON ARRIVAL TO [facility] ED, PT VSS. PT WITH UNREMARKABLE NEURO EXAM IN ROOM, AND DR. WAYNE IS AT BS. PT FAMILY AT . [facility] PAGED FOR EKG. AWAITING POC AND NEW ORDERS AT THIS TIME. PT HAS CALL LIGHT WITHIN REACH.
[2019-06-06 00:46] VITALS: BP 143/89
[2019-06-06] MEDS ORDERED: LIDOCAINE-MPF 1%, 5ML INFIL ONE (01:00)
[2019-06-06 01:22] LABS: BASOPHILS # (AUTO) 0.05 x10^3/uL (0-0.1); BASOPHILS % (AUTO) 1 % (0-1); EOSINOPHILS # (AUTO) 0.45 x10^3/uL (0-0.4); EOSINOPHILS % (AUTO) 6 % (1-7); LYMPHOCYTES # (AUTO) 3.09 x10^3/uL (1-3.4); LYMPHOCYTES % (AUTO) 38 % (22-44); MD NO; MEAN CORPUSCULAR HEMOGLOBIN 31.6 pg (27.0-34.8); MEAN CORPUSCULAR HGB CONC 32.8 g/dL (32.4-35.8); MEAN CORPUSCULAR VOLUME 96.2 fL (80-100); MEAN PLATELET VOLUME 7.3 fL (7.4-10.4); MONOCYTES # (AUTO) 0.66 x10^3/uL (0.2-0.8); MONOCYTES % (AUTO) 8 % (2-9); NEUTROPHILS # (AUTO) 3.94 x10^3/uL (1.8-6.8); NEUTROPHILS % (AUTO) 48 % (42-75); PLATELET COUNT 296 x10^3/uL (130-400); RED BLOOD COUNT 3.09 x10^6/uL (3.82-5.3); RED CELL DISTRIBUTION WIDTH 16.5 % (9.6-15.2)
[2019-06-06 01:33] LABS: ALANINE AMINOTRANSFERASE 29 U/L (12-78); ALBUMIN 2.9 g/dL (3.4-5.0); ANION GAP 6 mmol/L (5-15); CALCIUM 8.9 mg/dL (8.5-10.1); CHLORIDE 109 mmol/L (98-107); CREATININE 0.95 mg/dL (0.55-1.02)
[2019-06-06 01:36] LABS: ALKALINE PHOSPHATASE 106 U/L (45-117); BILIRUBIN,TOTAL 0.7 mg/dL (0.2-1.0); TOTAL PROTEIN 6.5 g/dL (6.4-8.2)
--- NOTE | 2019-06-06 01:38 | NUR ---
PT RESTING IN [facility] AT THIS TIME; [place]. PT DENIES ANY NEEDS AT THIS TIME.
[2019-06-06] MEDS ORDERED: LIDOCAINE-MPF 1%, 2ML ONE (01:40)
== END 2019-06-06 03:10 | disposition home or self-care (01) ==
LOC: ED 01:01
DX: S01.01XA Laceration without foreign body of scalp, initial encounter (principal); D63.8 Anemia in other chronic diseases classified elsewhere; I10 Essential (primary) hypertension; R90.82 White matter disease, unspecified; W01.0XXA Fall on same level from slipping, tripping and stumbling without subsequent striking against object, initial encounter; Y93.89 Activity, other specified; Y92.89 Other specified places as the place of occurrence of the external cause; Y99.8 Other external cause status
CPT/HCPCS: 12001; 36415; 70450; 80053; 80307; 85025; 93005; 99284

== ENCOUNTER 2019-11-18 17:02 | Emergency (ER) | payer MEDICARE, MEDICAID ==
[~2019-11-18] VITALS: Ht 157.5 cm; Wt 60.0 kg
--- NOTE | 2019-11-18 17:25 | NUR ---
OFF FLOOR TO XRAY
[2019-11-18] MEDS ORDERED: PROMETHAZINE 25 MG/ML, 1ML IM ONE (17:30)
[2019-11-18] MEDS ORDERED: PROMETHAZINE 25 MG/ML, 1ML ONE (17:58)
[2019-11-18] MEDS ORDERED: HYDROcodone/APAP 5/325 TABLET ONE (17:59)
[2019-11-18] MEDS ORDERED: HYDROcodone/APAP 5/325 TABLET PO ONE (18:00)
[2019-11-18 18:18] VITALS: BP 165/75
--- NOTE | 2019-11-18 18:18 | NUR ---
VISITOR AT BEDSIDE.
--- NOTE | 2019-11-18 18:18 | NUR ---
MEDICATED NOTED ON JAN FOR BACK PAIN AND NAUSEA
--- NOTE | 2019-11-18 18:48 | NUR ---
RE-EVAL BY . AWAITING DISCHARGE PAPERS.
--- NOTE | 2019-11-18 18:50 | NUR ---
PT WALKING IN ENCISO WITHOUT ASSISTANCE. STATES SOME IMPROVEMENT IN PAIN AND NO LONGER NAUSEATED.
== END 2019-11-18 19:11 | disposition home or self-care (01) ==
LOC: ED 17:39
DX: S39.012A Strain of muscle, fascia and tendon of lower back, initial encounter (principal); R11.2 Nausea with vomiting, unspecified; I10 Essential (primary) hypertension; F17.200 Nicotine dependence, unspecified, uncomplicated; W01.198A Fall on same level from slipping, tripping and stumbling with subsequent striking against other object, initial encounter; Y93.89 Activity, other specified; Y92.89 Other specified places as the place of occurrence of the external cause; Y99.8 Other external cause status
CPT/HCPCS: 72072; 72110; 96372; 99283; J2550

== ENCOUNTER 2019-11-23 17:54 | Inpatient (IN) | payer MEDICARE, MEDICAID ==
[~2019-11-23] VITALS: Ht 149.9 cm; Wt 74.7 kg
--- NOTE | 2019-11-23 17:54 | NUR ---
RAJAN FROM HOME C/O CONFUSION & VISUAL HALLUC (SEES A CAT THAT ISN'T THERE) AFTER TAKING UNKNOWN AMOUNT OF AMBIEN TODAY (2-7 TABS? PER ), SEEN HERE RECENTLY FOR SAME, A/O X2; PT CHANGED INTO GOWN, RESPONDS TO STAFF QUESTIONS, NAD, COMFORT MEASURES PROVIDED, CALL LIGHT WITHIN REACH. CARDIAC, NIBP & SPO2 MONITORS IN PLACE.
[2019-11-23] MEDS ORDERED: SODIUM CHLORIDE FLUSH 10ML SYR IVF ONE (18:30)
[2019-11-23 18:31] LABS: BASOPHILS # (AUTO) 0.11 x10^3/uL (0-0.1); BASOPHILS % (AUTO) 1 % (0-1); EOSINOPHILS # (AUTO) 0.03 x10^3/uL (0-0.4); EOSINOPHILS % (AUTO) 0 % (1-7); LYMPHOCYTES # (AUTO) 2.14 x10^3/uL (1-3.4); LYMPHOCYTES % (AUTO) 14 % (22-44); MD NO; MEAN CORPUSCULAR HEMOGLOBIN 31.2 pg (27.0-34.8); MEAN CORPUSCULAR HGB CONC 32.8 g/dL (32.4-35.8); MEAN CORPUSCULAR VOLUME 95.3 fL (80-100); MEAN PLATELET VOLUME 7.5 fL (7.4-10.4); MONOCYTES # (AUTO) 0.63 x10^3/uL (0.2-0.8); MONOCYTES % (AUTO) 4 % (2-9); NEUTROPHILS # (AUTO) 12.12 x10^3/uL (1.8-6.8); NEUTROPHILS % (AUTO) 81 % (42-75); PLATELET COUNT 349 x10^3/uL (130-400); RED BLOOD COUNT 3.84 x10^6/uL (3.82-5.3); RED CELL DISTRIBUTION WIDTH 14.8 % (9.6-15.2)
[2019-11-23 18:40] LABS: ALANINE AMINOTRANSFERASE 28 U/L (12-78); ALBUMIN 3.7 g/dL (3.4-5.0); ANION GAP 7 mmol/L (5-15); CALCIUM 8.8 mg/dL (8.5-10.1); CHLORIDE 107 mmol/L (98-107); SALICYLATE LEVEL 3.6 mg/dL (2.8-20.0)
[2019-11-23 18:45] LABS: ALKALINE PHOSPHATASE 104 U/L (45-117); BILIRUBIN,TOTAL 0.4 mg/dL (0.2-1.0); TOTAL PROTEIN 7.3 g/dL (6.4-8.2); TROPONIN I < 0.015 ng/mL (0.000-0.045)
--- NOTE | 2019-11-23 19:05 | NUR ---
REPORT GIVEN TO CARMINE
--- NOTE | 2019-11-23 19:16 | NUR ---
LOYDA "BOYFRIEND" [phone] WANTS UPDATE.
--- NOTE | 2019-11-23 20:08 | NUR ---
PT UP TO COMMODE X 1 UNALBE TO VOID, STRAIGHT CATH SENT TO LAB, PT TO CT, GIVEN SANDWICH AND CHIPS, SLEEPING ON AND OFF COOPERATIVE VS STABLE
[2019-11-23 20:14] LABS: CULTURE INDICATED? YES; MICROSCOPIC INDICATED
[2019-11-23 20:15] LABS: AMPHETAMINE SCREEN, URINE Negative (Negative); BARBITURATE SCREEN, URINE Negative (Negative); BENZODIAZEPINE SCREEN, URINE Negative (Negative); CANNABINOID SCREEN, URINE Negative (Negative); COCAINE SCREEN, URINE Negative (Negative); METHADONE SCREEN, URINE Negative (Negative); OPIATE SCREEN, URINE Negative (Negative)
--- NOTE | 2019-11-23 21:57 | NUR ---
TASK RN: PT. UP FOR D/C. PT. REPORTS LOYDA "SON" WILL BE GIVING HER A RIDE HOME TONIGHT. ATTEMPTED TO CONTACT LOYDA WITH PHONE NUMBER [phone] PROVIDED BY PT.; UNABLE TO REACH LOYDA PHONE GOES STRAIGHT TO VOICEMAIL AND MAILBOX IS FULL.
[2019-11-23] MEDS ORDERED: CEFDINIR 300 MG CAPSULE PO ONE (22:30)
[2019-11-23] MEDS ORDERED: CEFTRIAXONE PMX 1GM/50ML 50 ML IV SCH (23:00)
[2019-11-23] MEDS ORDERED: CEFDINIR 300 MG CAPSULE ONE (23:55)
[2019-11-23] MEDS ORDERED: CEFTRIAXONE PMX 1GM/50ML 50 ML ONE (23:55)
[2019-11-24 00:31] VITALS: BP 134/72
[2019-11-24 05:44] LABS: BASOPHILS # (AUTO) 0.28 x10^3/uL (0-0.1); BASOPHILS % (AUTO) 2 % (0-1); EOSINOPHILS # (AUTO) 0.16 x10^3/uL (0-0.4); EOSINOPHILS % (AUTO) 1 % (1-7); LYMPHOCYTES # (AUTO) 2.32 x10^3/uL (1-3.4); LYMPHOCYTES % (AUTO) 19 % (22-44); MD NO; MEAN CORPUSCULAR HEMOGLOBIN 31.1 pg (27.0-34.8); MEAN CORPUSCULAR HGB CONC 32.3 g/dL (32.4-35.8); MEAN CORPUSCULAR VOLUME 96.2 fL (80-100); MEAN PLATELET VOLUME 7.6 fL (7.4-10.4); MONOCYTES # (AUTO) 0.88 x10^3/uL (0.2-0.8); MONOCYTES % (AUTO) 7 % (2-9); NEUTROPHILS # (AUTO) 8.49 x10^3/uL (1.8-6.8); NEUTROPHILS % (AUTO) 70 % (42-75); PLATELET COUNT 322 x10^3/uL (130-400); RED BLOOD COUNT 3.75 x10^6/uL (3.82-5.3); RED CELL DISTRIBUTION WIDTH 14.8 % (9.6-15.2)
[2019-11-24 05:47] LABS: ANION GAP 5 mmol/L (5-15); CALCIUM 9.2 mg/dL (8.5-10.1); CHLORIDE 112 mmol/L (98-107)
[2019-11-24 05:49] LABS: CREATININE 0.91 mg/dL (0.55-1.02)
[2019-11-24 08:38] VITALS: BP 127/77
[2019-11-24] MEDS ORDERED: SULF1TAB24 PO (10:19)
== END 2019-11-24 11:56 | disposition home or self-care (01) | DRG 917 ==
LOC: ED 22:48 → EDIP 22:49 → 4NE 11-24 00:25 → DCLOUNGE 11-24 11:50
PROVIDERS: ADMIT Internal Medicine; ATTEND Internal Medicine
DX: T42.6X1A Poisoning by other antiepileptic and sedative-hypnotic drugs, accidental (unintentional), initial encounter (principal); G92 Toxic encephalopathy; F17.200 Nicotine dependence, unspecified, uncomplicated; I10 Essential (primary) hypertension; N30.90 Cystitis, unspecified without hematuria; Z79.899 Other long term (current) drug therapy; Z86.73 Personal history of transient ischemic attack (TIA), and cerebral infarction without residual deficits; Y92.098 Other place in other non-institutional residence as the place of occurrence of the external cause; Z91.041 Radiographic dye allergy status
CPT/HCPCS: 36415; 70450; 80048; 80053; 80307; 81001; 82140; 83735; 84484; 85025; 87086; 93005; 99285; J0696

== ENCOUNTER 2020-01-25 10:08 | Emergency (ER) | payer MEDICARE, MEDICAID ==
[~2020-01-25] VITALS: Ht 149.9 cm; Wt 56.0 kg
[~2020-01-25 10:08] MED LIST changes: -ROPI1TAB2 PO; +ROPI1TAB4 PO; +SULF1TAB24 PO
--- NOTE | 2020-01-25 10:28 | NUR ---
THIS IS A 69 YEAR OLD FEMALE WHO HAD AN "ACCIDENTAL OVERDOSE OF FLEXERIL AND AMBIEN" AMOUNT UNKNOWN. PT IS ALERT TO SELF ONLY, PLEASANT AND CONFUSED. PT PLACED ON WIRE WEAVING LOOM SETTER SINUS, CONTINOUS SP02 AND CYCLE VS. STRAIGHT CATH DONE, PT TOLERATED WELL. REPORT TO MAI LOUISE, PLAN OF CARE DISCUSSED
--- NOTE | 2020-01-25 10:37 | NUR ---
REPORT FROM JENN LOUISE. VSS. ORIENTED X1. LAB AT BEDSIDE. UA SENT. CALL KENNY/[facility].
[2020-01-25 11:05] LABS: MICROSCOPIC NOT IND
[2020-01-25 11:09] LABS: CULTURE INDICATED? NO
[2020-01-25 11:16] LABS: AMPHETAMINE SCREEN, URINE Negative (Negative); BARBITURATE SCREEN, URINE Negative (Negative); BENZODIAZEPINE SCREEN, URINE Negative (Negative); CANNABINOID SCREEN, URINE Negative (Negative); COCAINE SCREEN, URINE Negative (Negative); METHADONE SCREEN, URINE Negative (Negative); OPIATE SCREEN, URINE Negative (Negative)
[2020-01-25 11:26] LABS: BASOPHILS # (AUTO) 0.05 x10^3/uL (0-0.1); BASOPHILS % (AUTO) 1 % (0-1); EOSINOPHILS # (AUTO) 0.09 x10^3/uL (0-0.4); EOSINOPHILS % (AUTO) 1 % (1-7); LYMPHOCYTES # (AUTO) 1.55 x10^3/uL (1-3.4); LYMPHOCYTES % (AUTO) 20 % (22-44); MD NO; MEAN CORPUSCULAR HEMOGLOBIN 30.5 pg (27.0-34.8); MEAN CORPUSCULAR HGB CONC 32.2 g/dL (32.4-35.8); MEAN CORPUSCULAR VOLUME 94.8 fL (80-100); MONOCYTES % (AUTO) 5 % (2-9); NEUTROPHILS # (AUTO) 5.52 x10^3/uL (1.8-6.8); NEUTROPHILS % (AUTO) 73 % (42-75); PLATELET COUNT 257 x10^3/uL (130-400); RED CELL DISTRIBUTION WIDTH 14.1 % (9.6-15.2)
--- NOTE | 2020-01-25 11:37 | NUR ---
PT OOB TO BATHROOM, GAIT UNSTEADY. SUPERVISION. BACK TO BED. CONFUSED. CALL [facility].
[2020-01-25 11:38] LABS: ALANINE AMINOTRANSFERASE 34 U/L (12-78); ALBUMIN 3.6 g/dL (3.4-5.0); ANION GAP 6 mmol/L (5-15); CALCIUM 9.4 mg/dL (8.5-10.1); CHLORIDE 110 mmol/L (98-107); CREATININE 1.03 mg/dL (0.55-1.02); SALICYLATE LEVEL 3.8 mg/dL (2.8-20.0)
[2020-01-25 11:40] LABS: ALKALINE PHOSPHATASE 118 U/L (45-117); BILIRUBIN,TOTAL 0.4 mg/dL (0.2-1.0); TOTAL PROTEIN 7.3 g/dL (6.4-8.2)
--- NOTE | 2020-01-25 12:09 | NUR ---
TALKED TO JENN TAVAREZ RE: PT.
--- NOTE | 2020-01-25 12:23 | NUR ---
PT HELPED BACK TO BED, CONFUSED.
--- NOTE | 2020-01-25 13:34 | NUR ---
GIVEN FOOD. VSS.
--- NOTE | 2020-01-25 13:41 | NUR ---
BF ON PHONE, UPDATED W/ PERMISSION FROM PT. BF TO COME IN WITHIN 45 MIN.
[2020-01-25 14:56] VITALS: BP 152/84
--- NOTE | 2020-01-25 14:57 | NUR ---
BF WAS HERE, ARGUE W/ PT AND LEFT BEFORE SPEAKING W/ SW. PER [facility] PT TBD[facility] HOME. PT VERY ANXIOUS TO LEAVE. PT IS NOW ORIENTED X34, DENIES TAKING AMBIEN. VSS. PIV REMOVED.
== END 2020-01-25 15:23 | disposition home or self-care (01) ==
LOC: ED 11:47
DX: T42.6X1A Poisoning by other antiepileptic and sedative-hypnotic drugs, accidental (unintentional), initial encounter (principal); R41.0 Disorientation, unspecified; Y92.89 Other specified places as the place of occurrence of the external cause
CPT/HCPCS: 36600; 71045; 80053; 80307; 81003; 82140; 82803; 85025; 93005; 99285

== ENCOUNTER 2020-07-21 17:28 | Emergency (ER) | payer MEDICARE, MEDICAID ==
[~2020-07-21] VITALS: Ht 157.5 cm; Wt 50.0 kg
--- NOTE | 2020-07-21 17:36 | NUR ---
BIB [facility] PT SPOUSE STATES PT HAS BEEN INCREASINGLY CONFUSED OVER THE LAST 10 DAYS. PT SPOUSE STATES PT HAS DECREASED SLEEP AND PO INTAKE X 10 DAYS. PT AOX2. THINKS SHE IS AT THE PHARMACY AND DOESN'T KNOW WHY SHE'S HERE. PT IS NOTED TO BE CONFUSED THROUGH CONVERSING W/ PT. NUTRITION SERVICES MANAGER BS 90, HR 80, 110/72, 98% RA. DENIES UTI SX/PELVIC PAIN. PT MAKING STATEMENTS LIKE "WHY ARE THE RATTLESNAKES EVERYWHERE?" DENIES RATTLESNAKES IN ROOM. STATES THEY ARE AT HER FRIENDS HOUSE. MONITORS APPLIED. EKG COMPLETED. VSS.
[2020-07-21] MEDS ORDERED: SODIUM CHLORIDE FLUSH 10ML SYR IVF ONE (18:00)
[2020-07-21 18:12] LABS: BASOPHILS # (AUTO) 0.08 x10^3/uL (0-0.1); BASOPHILS % (AUTO) 1 % (0-1); EOSINOPHILS # (AUTO) 0.28 x10^3/uL (0-0.4); EOSINOPHILS % (AUTO) 4 % (1-7); LYMPHOCYTES % (AUTO) 38 % (22-44); MD NO; MEAN CORPUSCULAR HEMOGLOBIN 30.7 pg (27.0-34.8); MEAN CORPUSCULAR HGB CONC 32.6 g/dL (32.4-35.8); MEAN CORPUSCULAR VOLUME 94.3 fL (80-100); MEAN PLATELET VOLUME 7.4 fL (7.4-10.4); MONOCYTES # (AUTO) 0.76 x10^3/uL (0.2-0.8); MONOCYTES % (AUTO) 10 % (2-9); NEUTROPHILS # (AUTO) 3.68 x10^3/uL (1.8-6.8); NEUTROPHILS % (AUTO) 47 % (42-75); PLATELET COUNT 297 x10^3/uL (130-400); RED BLOOD COUNT 3.85 x10^6/uL (3.82-5.3); RED CELL DISTRIBUTION WIDTH 14.6 % (9.6-15.2)
[2020-07-21 18:19] LABS: ALANINE AMINOTRANSFERASE 27 U/L (12-78); ALBUMIN 3.8 g/dL (3.4-5.0); ANION GAP 7 mmol/L (5-15); CALCIUM 9.5 mg/dL (8.5-10.1); CHLORIDE 109 mmol/L (98-107)
--- NOTE | 2020-07-21 18:23 | NUR ---
URINE COLLECTED VIA STRAIGHT CATH AND TAKEN TO LAB.
[2020-07-21 18:24] LABS: MICROSCOPIC NOT IND
[2020-07-21 18:30] LABS: ALKALINE PHOSPHATASE 129 U/L (45-117); BILIRUBIN,TOTAL 0.3 mg/dL (0.2-1.0); TOTAL PROTEIN 7.2 g/dL (6.4-8.2)
--- NOTE | 2020-07-21 18:30 | NUR ---
PT TO CT
--- NOTE | 2020-07-21 19:00 | NUR ---
REPORT FROM MARIA GUADALUPE LOUISE TO ASSUME CARE AT THIS TIME
--- NOTE | 2020-07-21 19:24 | NUR ---
PLACED CALL TO PT SIGNIFICANT OTHER, DEE, AT [phone], AND HE STATES PT HAS BEEN MORE ALTERED X 10 DAYS AND DENIES ANY CHANGES IN MEDICATION OR ISSUES WITH SELF ADMINISTERING HOME MEDICATIONS. DEE INFORMED OF RESULTS AND TO ANTICIPATE DC SOON
[2020-07-21 19:59] VITALS: BP 121/76
== END 2020-07-21 20:07 | disposition home or self-care (01) ==
LOC: ED 17:50
DX: R41.82 Altered mental status, unspecified (principal); R53.1 Weakness; R51 Headache; R05 Cough; R11.10 Vomiting, unspecified; R06.9 Unspecified abnormalities of breathing; I10 Essential (primary) hypertension; R94.31 Abnormal electrocardiogram [ECG] [EKG]; Z90.49 Acquired absence of other specified parts of digestive tract
CPT/HCPCS: 36415; 70450; 71045; 80053; 81003; 83735; 84443; 85025; 93005; 99285

== ENCOUNTER 2021-03-09 15:40 | Emergency (ER) | payer MEDICARE, MEDICAID ==
[~2021-03-09 15:40] MED LIST changes: +HYDR-2214 PO; -HYDR-3240 PO; -OXYC-306 PO; +OXYC1TAB17 PO
[2021-03-09 15:50] VITALS: BP 171/82
--- NOTE | 2021-03-09 15:56 | NUR ---
BIB [facility] FROM HOME. PT S/O STATES PT TOOK TOO MANY AMBIEN. PER [facility] 2 AMBIEN 10MG WERE MISSING FROM BOTTLE FILLED YESTERDAY. S/O STATES PT HAS BEEN HAVING INCREASE IN COGNITIVE DECLINE. PT IS TO GO TO A REHAB CENTER FOR UNKNOWN REASON. PT A&O ZERO. WESTERN PHILOSOPHY PROFESSOR [facility]: FSBG 108, 20G RAC. PT CONNECTED TO MONITORING. CALL LIGHT IN REACH. WARM BLANKETS PROVIDED.
[2021-03-09 16:51] LABS: ALBUMIN 3.1 g/dL (3.4-5.0); ANION GAP 6 mmol/L (5-15); CALCIUM 8.7 mg/dL (8.5-10.1); CHLORIDE 112 mmol/L (98-107)
[2021-03-09 16:55] LABS: ALANINE AMINOTRANSFERASE 25 U/L (12-78); ALKALINE PHOSPHATASE 93 U/L (45-117); BILIRUBIN,TOTAL 0.2 mg/dL (0.2-1.0); CREATININE 0.91 mg/dL (0.55-1.02); TOTAL PROTEIN 6.1 g/dL (6.4-8.2)
--- NOTE | 2021-03-09 16:57 | NUR ---
PT IS NOW A&O X4. PT SAW HER PCP THIS AM. PT TRANSFERRED TO [facility] INDEPENDENTLY AND STEADILY. PT PROVIDED URINE SAMPLE. UA COLLECTED AND TAKEN TO LAB. PT CONNECTED TO MONITORING. CALL LIGHT IN REACH.
[2021-03-09 16:58] LABS: SALICYLATE LEVEL < 1.7 mg/dL (2.8-20.0)
[2021-03-09 17:00] LABS: BASOPHILS % (AUTO) 2 % (0-1); EOSINOPHILS % (AUTO) 5 % (1-7); LYMPHOCYTES % (AUTO) 48 % (22-44); MEAN CORPUSCULAR HEMOGLOBIN 28.8 pg (27.0-34.8); MEAN CORPUSCULAR HGB CONC 32.5 g/dL (32.4-35.8); MEAN PLATELET VOLUME 7.7 fL (7.4-10.4); MONOCYTES % (AUTO) 9 % (2-9); NEUTROPHILS % (AUTO) 37 % (42-75); PLATELET COUNT 281 x10^3/uL (130-400); RED BLOOD COUNT 3.16 x10^6/uL (3.82-5.3); RED CELL DISTRIBUTION WIDTH 14.7 % (9.6-15.2)
[2021-03-09 17:01] LABS: MD NO
[2021-03-09 17:04] LABS: MICROSCOPIC NOT IND
[2021-03-09 17:15] LABS: AMPHETAMINE SCREEN, URINE Negative (Negative); BARBITURATE SCREEN, URINE Negative (Negative); BENZODIAZEPINE SCREEN, URINE Negative (Negative); CANNABINOID SCREEN, URINE Negative (Negative); COCAINE SCREEN, URINE Negative (Negative); METHADONE SCREEN, URINE Negative (Negative); OPIATE SCREEN, URINE Negative (Negative)
== END 2021-03-09 18:33 | disposition home or self-care (01) ==
LOC: ED 17:00
DX: F10.10 Alcohol abuse, uncomplicated (principal); R41.82 Altered mental status, unspecified; I10 Essential (primary) hypertension; F17.200 Nicotine dependence, unspecified, uncomplicated; Z72.9 Problem related to lifestyle, unspecified; Z90.49 Acquired absence of other specified parts of digestive tract; Y90.0 Blood alcohol level of less than 20 mg/100 ml
CPT/HCPCS: 36415; 70450; 71045; 80053; 80299; 80307; 80320; 80329; 81003; 85025; 93005; 99285; G0480

== ENCOUNTER 2021-03-29 15:55 | Inpatient (IN) | payer MEDICARE, MEDICAID ==
[~2021-03-29] VITALS: Ht 157.5 cm; Wt 65.7 kg
[~2021-03-29 15:55] MED LIST changes: +SULF-23 PO; -SULF1TAB24 PO
--- NOTE | 2021-03-29 16:17 | NUR ---
Bib by mikayla after friend called for change in mental exam. Friend reports "she may have taken a bunch of tramdol, or not I'm not sure." Friend reports she is normally a+ox4 On arrival, confused, answers all questions with "adrien" No focal deficits-erp to bedside Skin hot to touch-rectal temp of 100.5, hr 105 placed on satellite project site monitor, ecg obtained straight cath ua obtained
[2021-03-29 16:32] LABS: MICROSCOPIC NOT IND
--- NOTE | 2021-03-29 16:35 | NUR ---
SITTER TO BEDSIDE FOR CONFUSION (SKIN LIFTER BACON WORRIED ABOUT PATIENT ATTEMPTING TO GET UP AND FALL)
[2021-03-29 16:43] LABS: AMPHETAMINE SCREEN, URINE Negative (Negative); BARBITURATE SCREEN, URINE Negative (Negative); BENZODIAZEPINE SCREEN, URINE Negative (Negative); CANNABINOID SCREEN, URINE Positive (Negative); COCAINE SCREEN, URINE Negative (Negative); METHADONE SCREEN, URINE Negative (Negative); OPIATE SCREEN, URINE Positive (Negative)
[2021-03-29] MEDS ORDERED: ACETAMINOPHEN 325 MG TABLET PO ONE (17:00)
[2021-03-29] MEDS ORDERED: SODIUM CHLORIDE 0.9% 1,000ML IVBOLUS ONE (17:00)
[2021-03-29] MEDS ORDERED: SODIUM CHLORIDE FLUSH 10ML SYR IVF ONE (17:00)
[2021-03-29 17:43] LABS: BASOPHILS % (AUTO) 0 % (0-1); EOSINOPHILS % (AUTO) 1 % (1-7); LYMPHOCYTES % (AUTO) 12 % (22-44); MEAN CORPUSCULAR HEMOGLOBIN 27.8 pg (27.0-34.8); MEAN CORPUSCULAR HGB CONC 31.8 g/dL (32.4-35.8); MEAN PLATELET VOLUME 7.1 fL (7.4-10.4); MONOCYTES % (AUTO) 7 % (2-9); NEUTROPHILS % (AUTO) 80 % (42-75); PLATELET COUNT 281 x10^3/uL (130-400); RED BLOOD COUNT 3.29 x10^6/uL (3.82-5.3); RED CELL DISTRIBUTION WIDTH 15.4 % (9.6-15.2)
[2021-03-29 17:44] LABS: MD NO
[2021-03-29] MEDS ORDERED: ACETAMINOPHEN 650 MG SUPP ONE (17:47)
[2021-03-29 17:48] LABS: ALBUMIN 3.5 g/dL (3.4-5.0); ANION GAP 7 mmol/L (5-15); CHLORIDE 114 mmol/L (98-107); CREATININE 1.67 mg/dL (0.55-1.02)
[2021-03-29] MEDS ORDERED: ACETAMINOPHEN 650 MG SUPP PR ONE (18:00)
[2021-03-29] MEDS ORDERED: CEFTRIAXONE 2 GM in DEXTROSE 5% 50 ML IVPB ONE (18:00)
--- NOTE | 2021-03-29 18:04 | NUR ---
2gm of rocephin ordered from pharmacy
[2021-03-29] MEDS ORDERED: SODIUM CHLORIDE FLUSH 10ML SYR IVF PRN (18:30)
[2021-03-29] MEDS ORDERED: SODIUM CHLORIDE 0.9% 1,000 ML IV ONE (18:30)
[2021-03-29] MEDS ORDERED: GABA600T7 PO (19:26)
--- NOTE | 2021-03-29 20:13 | NUR ---
REPORT CALLED TO NATE LOUISE. NO AVAILABLE SITTER AT THIS TIME. THEY ARE RE-ARRANGING PATIENT TO FULLY UTILIZE AVAILBLE SITTERS. NATE TO CALL KETTLE CLEANER BACK WHEN PATIENT CAN BE TRANSFERRED
[2021-03-29] MEDS ORDERED: ONDANSETRON 2MG/ML, 2ML IVPush PRN (20:30)
[2021-03-29] MEDS ORDERED: ACETAMINOPHEN 325 MG TABLET PO PRN (20:30)
[2021-03-29] MEDS ORDERED: BISACODYL 10 MG SUPP PR PRN (20:30)
[2021-03-29 20:52] VITALS: BP 133/66
[2021-03-29] MEDS: SODIUM CHLORIDE 0.9% 1,000 ML IV SCH (21:02)
[2021-03-29] MEDS: HEPARIN 5,000 UNITS/ML, 1ML SQ SCH (22:00)
[2021-03-29] MEDS: AZITHROMYCIN 500 MG in SODIUM CHLORIDE 0.9% 250 ML IV SCH (22:52)
[2021-03-30 01:47] VITALS: BP 109/78
[2021-03-30 05:43] LABS: BASOPHILS % (AUTO) 0 % (0-1); EOSINOPHILS % (AUTO) 2 % (1-7); LYMPHOCYTES % (AUTO) 10 % (22-44); MEAN CORPUSCULAR HEMOGLOBIN 28.1 pg (27.0-34.8); MEAN CORPUSCULAR HGB CONC 31.7 g/dL (32.4-35.8); MEAN PLATELET VOLUME 7.1 fL (7.4-10.4); MONOCYTES % (AUTO) 6 % (2-9); NEUTROPHILS % (AUTO) 82 % (42-75); PLATELET COUNT 237 x10^3/uL (130-400); RED BLOOD COUNT 3.01 x10^6/uL (3.82-5.3); RED CELL DISTRIBUTION WIDTH 15.3 % (9.6-15.2)
[2021-03-30 05:53] LABS: MD NO
[2021-03-30 05:54] LABS: CHLORIDE 120 mmol/L (98-107)
[2021-03-30 06:04] LABS: ANION GAP 6 mmol/L (5-15); CALCIUM 9.3 mg/dL (8.5-10.1); CREATININE 0.99 mg/dL (0.55-1.02)
[2021-03-30] MEDS: HEPARIN 5,000 UNITS/ML, 1ML SQ SCH ×2 (06:12→17:01)
[2021-03-30 07:03] VITALS: BP 150/74
[2021-03-30] MEDS: SODIUM CHLORIDE 0.9% 1,000 ML IV SCH (08:34)
[2021-03-30] MEDS: LISINOPRIL 10 MG TABLET PO SCH (09:51)
[2021-03-30] MEDS: GABAPENTIN 300 MG CAPSULE PO SCH ×2 (09:51→20:53)
[2021-03-30 15:44] VITALS: BP 163/98
[2021-03-30] MEDS: CEFTRIAXONE 1,000 MG in DEXTROSE 5% 50 ML IVPB SCH (17:01)
[2021-03-30 19:21] VITALS: BP 175/84
[2021-03-30 21:12] VITALS: BP 186/69
[2021-03-30] MEDS ORDERED: LABETALOL 5MG/ML, 20ML IVPush ONE (21:30)
[2021-03-30 22:34] VITALS: BP 156/85
[2021-03-30] MEDS: AZITHROMYCIN 500 MG in SODIUM CHLORIDE 0.9% 250 ML IV SCH (22:41)
[2021-03-31 00:43] VITALS: BP 152/68
[2021-03-31] MEDS: HEPARIN 5,000 UNITS/ML, 1ML SQ SCH ×3 (00:52→17:57)
[2021-03-31 05:00] LABS: BASOPHILS % (AUTO) 1 % (0-1); EOSINOPHILS % (AUTO) 0 % (1-7); LYMPHOCYTES % (AUTO) 15 % (22-44); MEAN CORPUSCULAR HEMOGLOBIN 27.9 pg (27.0-34.8); MEAN CORPUSCULAR HGB CONC 32.3 g/dL (32.4-35.8); MEAN PLATELET VOLUME 7.6 fL (7.4-10.4); MONOCYTES % (AUTO) 7 % (2-9); NEUTROPHILS % (AUTO) 77 % (42-75); PLATELET COUNT 263 x10^3/uL (130-400); RED BLOOD COUNT 3.13 x10^6/uL (3.82-5.3); RED CELL DISTRIBUTION WIDTH 15.8 % (9.6-15.2)
[2021-03-31 05:01] LABS: MD NO
[2021-03-31 05:02] LABS: ANION GAP 9 mmol/L (5-15); CALCIUM 9.3 mg/dL (8.5-10.1); CHLORIDE 119 mmol/L (98-107)
[2021-03-31 08:10] VITALS: BP 194/143
[2021-03-31] MEDS ORDERED: ERGOCALCIFEROL 50,000 UNIT CAPSULE ONE (08:51)
[2021-03-31] MEDS ORDERED: POTASSIUM CHLORIDE 20 MEQ TAB.ER.PRT ONE (08:52)
[2021-03-31] MEDS: GABAPENTIN 300 MG CAPSULE PO SCH ×2 (08:57→21:38)
[2021-03-31] MEDS: POTASSIUM CHLORIDE 20 MEQ TAB.ER.PRT PO SCH ×2 (08:57→17:57)
[2021-03-31] MEDS: LISINOPRIL 10 MG TABLET PO SCH (08:58)
[2021-03-31] MEDS ORDERED: hydrALAzine 20 MG/ML, 1ML IV PRN (09:00)
[2021-03-31] MEDS ORDERED: ERGOCALCIFEROL 50,000 UNIT CAPSULE PO SCH (09:00)
[2021-03-31 09:09] VITALS: BP 153/86
[2021-03-31 13:18] VITALS: BP 166/73
[2021-03-31] MEDS: CEFTRIAXONE 1,000 MG in DEXTROSE 5% 50 ML IVPB SCH (18:05)
[2021-03-31 18:46] VITALS: BP 148/77
[2021-03-31] MEDS: AZITHROMYCIN 500 MG in SODIUM CHLORIDE 0.9% 250 ML IV SCH (22:36)
[2021-04-01 00:43] VITALS: BP 157/82
[2021-04-01] MEDS: HEPARIN 5,000 UNITS/ML, 1ML SQ SCH ×3 (01:00→17:03)
[2021-04-01 06:55] VITALS: BP 136/76
[2021-04-01] MEDS: LISINOPRIL 10 MG TABLET PO SCH (08:28)
[2021-04-01] MEDS: GABAPENTIN 300 MG CAPSULE PO SCH ×2 (08:29→20:01)
[2021-04-01] MEDS: POTASSIUM CHLORIDE 20 MEQ TAB.ER.PRT PO SCH (08:29)
[2021-04-01 09:21] LABS: ANION GAP 6 mmol/L (5-15); CALCIUM 9.2 mg/dL (8.5-10.1); CHLORIDE 116 mmol/L (98-107); CREATININE 0.88 mg/dL (0.55-1.02)
[2021-04-01 12:17] VITALS: BP 133/66
[2021-04-01] MEDS: CEFTRIAXONE 1,000 MG in DEXTROSE 5% 50 ML IVPB SCH (17:34)
[2021-04-01 19:22] VITALS: BP 133/70
[2021-04-01] MEDS: AZITHROMYCIN 500 MG in SODIUM CHLORIDE 0.9% 250 ML IV SCH (22:39)
[2021-04-02 00:12] VITALS: BP 125/68
[2021-04-02] MEDS: HEPARIN 5,000 UNITS/ML, 1ML SQ SCH ×3 (01:13→17:00)
[2021-04-02 06:38] VITALS: BP 135/79
[2021-04-02] MEDS: GABAPENTIN 300 MG CAPSULE PO SCH (09:09)
[2021-04-02] MEDS: LISINOPRIL 10 MG TABLET PO SCH (09:09)
[2021-04-02 13:38] VITALS: BP 152/90
[2021-04-02] MEDS ORDERED: AZIT500T10 PO (15:17)
[2021-04-02] MEDS ORDERED: CEFD300C37 PO (15:17)
[2021-04-03] MEDS ORDERED: FUROSEMIDE 20 MG TABLET PO SCH (09:00)
== END 2021-04-02 17:51 | disposition home or self-care (01) | DRG 871 ==
LOC: MERGE 15:55 → ED 18:37 → EDIP 19:12 → 4WST 20:33
PROVIDERS: ADMIT Family Medicine; ATTEND Internal Medicine
DX: A41.9 Sepsis, unspecified organism (principal); J18.9 Pneumonia, unspecified organism; N17.0 Acute kidney failure with tubular necrosis; G93.40 Encephalopathy, unspecified; I38 Endocarditis, valve unspecified; F17.200 Nicotine dependence, unspecified, uncomplicated; D64.9 Anemia, unspecified; I11.0 Hypertensive heart disease with heart failure; I34.0 Nonrheumatic mitral (valve) insufficiency; Z20.822 Contact with and (suspected) exposure to COVID-19; M54.16 Radiculopathy, lumbar region; M54.30 Sciatica, unspecified side; Z91.041 Radiographic dye allergy status; Z90.49 Acquired absence of other specified parts of digestive tract; F03.90 Unspecified dementia, unspecified severity, without behavioral disturbance, psychotic disturbance, mood disturbance, and anxiety
CPT/HCPCS: 36415; 70450; 71045; 80048; 80307; 81003; 82040; 82140; 82306; 82607; 83605; 83735; 83880; 84100; 84145; 84443; 85025; 87040; 93005; 93306; G0378; J0456; J0696; J1644; U0005; 92523-GN; J7030; J7050; U0003